=== PATIENT | female | born 1955 | race Caucasian/White ===

== ENCOUNTER → 2018-03-30 12:39 | Outpatient (POV) | payer MEDICARE, SELFPAY ==
[2018-03-30 14:46] LABS: Ammonia 36 umol/L (19-54)
[2018-03-30 14:52] LABS: Basophils # 0.1 K/mm3 (0-0.2); Basophils % 0.7 % (0.1-2.0); Eosinophils # 0.2 K/mm3 (0.0-0.4); Eosinophils % 2.7 % (0.1-12.0); Hematocrit 38.1 % (37.0-47.0); Hemoglobin 12.7 g/dL (12.2-16.2); Lymphocytes # 2.4 K/mm3 (0.7-4.5); Lymphocytes % 30.9 K/mm3 (10-50); Mean Corpuscular HGB Conc 33.2 g/dL (31.8-35.4); Mean Corpuscular Hemoglobin 33.7 pg (27.0-31.2); Mean Corpuscular Volume 101.4 fl (81-99); Mean Platelet Volume 8.6 fl (7.4-10.4); Monocytes # 0.4 K/mm3 (0.1-1.0); Monocytes % 5.8 % (1.7-9.3); Neutrophils # 4.6 K/mm3 (1.8-7.8); Neutrophils % 59.9 % (37.0-80.0); Platelet Count 150 K/mm3 (142-424); Red Blood Count 3.76 M/mm3 (4.20-5.40); Red Cell Distribution Width 13.9 % (11.5-17.5); White Blood Count 7.6 K/mm3 (4.8-10.8)
[2018-03-30 15:25] LABS: Prothrombin Time 12.3 seconds (9.4-11.8)
[2018-03-30 15:39] LABS: Alanine Aminotransferase 23 U/L (12-78); Albumin Level 2.9 gm/dL (3.4-5.0); Albumin/Globulin Ratio 0.8 (1.1-1.8); Alkaline Phosphatase 73 U/L (46-116); Anion Gap 10.5 mEq/L (5-15); Aspartate Amino Transferase 46 U/L (15-37); Bilirubin,Total 1.3 mg/dL (0.2-1.0); Blood Urea Nitrogen 11 mg/dL (7-18); Calcium 8.7 mg/dL (8.5-10.1); Carbon Dioxide 33 mmol/L (21.0-32.0); Chloride 102 mmol/L (98-107); Creatinine,Serum 0.99 mg/dL (0.55-1.02); Estimated Glomerular Filt Rate 57 ml/min (>60); Ferritin 270 ng/mL (8-388); GFR (African American) 69 ML/MIN (>60); Globulin 3.8 gm/dl (1.3-3.2); Glucose 86 mg/dL (74-106); Sodium 143 mmol/L (136-145); Total Protein,Serum 6.7 gm/dL (6.4-8.2)
[2018-03-30 15:42] LABS: Potassium 2.5 mmoL/L (3.5-5.1)
[2018-04-01 10:15] LABS: Iron 132 ug/dL (27-139); UIBC 106 ug/dL (118-369)
[2018-04-01 13:10] LABS: Iron Saturation 55 % (15-55)
[2018-04-02 07:00] LABS: AFP, Tumor Marker 2.8 ng/mL (0.0-8.3)
[2018-04-03 07:31] LABS: ALT (SGPT) P5P 17 IU/L (0-40); Alpha 2-Macroglobulins, Qn 335 mg/dL (110-276); Apolipoprotein A-1 68 mg/dL (116-209); Bilirubin, Total 0.4 mg/dL (0.0-1.2); GGT 42 IU/L (0-60); Haptoglobin 98 mg/dL (34-200); Necroinflammat Activity Grade A0-No activity (.); Necroinflammat Activity Score 0.11 (0.00-0.17)
== END ==
PROVIDERS: Visit Provider Nurse Practitioner Acute Care
DX: B18.2 Chronic viral hepatitis C (principal)
CPT/HCPCS: 36415; 80053; 82105; 82140; 82728; 83540; 83550; 85025; 85610; 87522